=== PATIENT | female | born 1945 | race Caucasian/White ===

== ENCOUNTER → 2016-07-02 | Outpatient (CLI) | payer MEDICARE, OTHER ==
[~2016-07-02] MED LIST: REGADENOSON 0.4 MG/5 ML SYRINGE ONE
== END | disposition home or self-care (01) ==
LOC: CFH 12:07
PROVIDERS: ATTEND Internal Medicine Cardiovascular Disease
DX: Z01.810 Encounter for preprocedural cardiovascular examination (principal); I10 Essential (primary) hypertension; R94.31 Abnormal electrocardiogram [ECG] [EKG]
CPT/HCPCS: 78452; 93017; A9502; J2785

== ENCOUNTER → 2016-09-08 | Outpatient (CLI) | payer MEDICARE, OTHER ==
[2016-09-08 15:57] LABS: BLOOD UREA NITROGEN 17 mg/dL (7-18)
== END | disposition home or self-care (01) ==
LOC: LAB 15:28
PROVIDERS: ATTEND Orthopaedic Surgery
DX: Z01.812 Encounter for preprocedural laboratory examination (principal)
CPT/HCPCS: 36415; 80048; 85025

== ENCOUNTER 2017-03-14 12:18 | Emergency (ER) | payer MEDICARE, OTHER ==
[~2017-03-14] VITALS: Ht 160 cm; Wt 91.0 kg
[~2017-03-14 12:18] MED LIST changes: +AMLO10TA4 PO; -REGADENOSON 0.4 MG/5 ML SYRINGE ONE
[2017-03-14 12:20] VITALS: BP 152/92
[2017-03-14] MEDS ORDERED: ALBUTEROL/IPRATROPIUM 2.5MG/0.5MG, 3 ML NPPB ONE (13:30)
[2017-03-14] MEDS ORDERED: ALBUTEROL/IPRATROPIUM 2.5MG/0.5MG, 3 ML ONE (13:36)
== END 2017-03-14 14:58 ==
LOC: ED 13:28
DX: J45.909 Unspecified asthma, uncomplicated (principal); B34.9 Viral infection, unspecified; K21.9 Gastro-esophageal reflux disease without esophagitis; I10 Essential (primary) hypertension
CPT/HCPCS: 71020; 93005; 94640; 99284; J7512

== ENCOUNTER → 2017-11-07 | Outpatient (CLI) | payer MEDICARE, OTHER | END | disposition home or self-care (01) | LOC: CFH 13:54 | PROVIDERS: ATTEND Family Medicine | DX: D44.12 Neoplasm of uncertain behavior of left adrenal gland (principal); K76.89 Other specified diseases of liver; I10 Essential (primary) hypertension; K21.9 Gastro-esophageal reflux disease without esophagitis; J45.909 Unspecified asthma, uncomplicated | CPT/HCPCS: 74181 ==

== ENCOUNTER → 2017-11-14 | Outpatient (CLI) | payer MEDICARE, OTHER ==
[~2017-11-14] MED LIST changes: +OMNIPAQUE 350 MG/ML, 100ML BOTTLE ONE
[2017-11-14 12:57] LABS: CREATININE 1.02 mg/dL (0.55-1.02)
== END | disposition home or self-care (01) ==
LOC: RAD 12:18
PROVIDERS: ATTEND Family Medicine
DX: D41.01 Neoplasm of uncertain behavior of right kidney (principal); N28.89 Other specified disorders of kidney and ureter; K76.89 Other specified diseases of liver; E27.8 Other specified disorders of adrenal gland; I10 Essential (primary) hypertension; K21.9 Gastro-esophageal reflux disease without esophagitis
CPT/HCPCS: 36415; 74170; 82565; Q9967

== ENCOUNTER → 2017-12-23 | Outpatient (CLI) | payer MEDICARE, OTHER ==
[~2017-12-23] MED LIST changes: -OMNIPAQUE 350 MG/ML, 100ML BOTTLE ONE
[2017-12-23 08:41] LABS: BASOPHILS # (AUTO) 0.02 x10^3/uL (0-0.1); BASOPHILS % (AUTO) 0 % (0-1); EOSINOPHILS # (AUTO) 0.46 x10^3/uL (0-0.4); EOSINOPHILS % (AUTO) 5 % (1-7); LYMPHOCYTES # (AUTO) 2.24 x10^3/uL (1-3.4); LYMPHOCYTES % (AUTO) 26 % (22-44); MD NO; MEAN CORPUSCULAR HEMOGLOBIN 27.5 pg (27.0-34.8); MEAN CORPUSCULAR HGB CONC 33.5 g/dL (32.4-35.8); MEAN PLATELET VOLUME 8.8 fL (7.4-10.4); MONOCYTES # (AUTO) 0.46 x10^3/uL (0.2-0.8); MONOCYTES % (AUTO) 5 % (2-9); NEUTROPHILS # (AUTO) 5.46 x10^3/uL (1.8-6.8); NEUTROPHILS % (AUTO) 63 % (42-75); PLATELET COUNT 300 x10^3/uL (130-400); RED BLOOD COUNT 5.02 x10^6/uL (3.82-5.3); RED CELL DISTRIBUTION WIDTH 16.1 % (9.6-15.2)
[2017-12-23 08:54] LABS: ALANINE AMINOTRANSFERASE 23 U/L (12-78); ALBUMIN 3.3 g/dL (3.4-5.0); ANION GAP 8 mmol/L (5-15); CALCIUM 8.7 mg/dL (8.5-10.1); CHLORIDE 107 mmol/L (98-107); CREATININE 0.84 mg/dL (0.55-1.02)
[2017-12-23 09:04] LABS: ALKALINE PHOSPHATASE 92 U/L (45-117); BILIRUBIN,TOTAL 0.5 mg/dL (0.2-1.0); THYROID STIMULATING HORMONE 0.488 mIU/L (0.358-3.740); TOTAL PROTEIN 7.3 g/dL (6.4-8.2)
[2017-12-23 10:02] LABS: HEMOGLOBIN A1C 5.5 % (4.2-6.3)
== END | disposition home or self-care (01) ==
LOC: LAB 07:45
PROVIDERS: ATTEND Emergency Medicine Emergency Medical Services
DX: E03.9 Hypothyroidism, unspecified (principal); E55.9 Vitamin D deficiency, unspecified; R73.01 Impaired fasting glucose; Z88.2 Allergy status to sulfonamides
CPT/HCPCS: 36415; 80053; 80327; 82306; 82465; 82977; 83036; 83615; 84100; 84439; 84443; 84478; 84481; 84550; 85025; G0480

== ENCOUNTER 2018-01-21 12:35 | Emergency (ER) | payer MEDICARE, OTHER ==
[~2018-01-21] VITALS: Ht 161.3 cm; Wt 94.0 kg
[2018-01-21] MEDS ORDERED: [UNRECOGNIZED DRUG - CODE] PO (13:09)
[2018-01-21] MEDS ORDERED: blood pressure med (13:09)
[2018-01-21] MEDS ORDERED: DIAZEPAM 5 MG TABLET ONE (13:25)
[2018-01-21] MEDS ORDERED: DIAZEPAM 5 MG TABLET PO ONE (13:30)
[2018-01-21 13:55] LABS: BASOPHILS # (AUTO) 0.04 x10^3/uL (0-0.1); BASOPHILS % (AUTO) 0 % (0-1); EOSINOPHILS # (AUTO) 1.34 x10^3/uL (0-0.4); EOSINOPHILS % (AUTO) 14 % (1-7); LYMPHOCYTES # (AUTO) 2.85 x10^3/uL (1-3.4); LYMPHOCYTES % (AUTO) 30 % (22-44); MD NO; MEAN CORPUSCULAR HEMOGLOBIN 27.9 pg (27.0-34.8); MEAN CORPUSCULAR HGB CONC 33.7 g/dL (32.4-35.8); MEAN CORPUSCULAR VOLUME 82.6 fL (80-100); MEAN PLATELET VOLUME 8.1 fL (7.4-10.4); MONOCYTES # (AUTO) 0.46 x10^3/uL (0.2-0.8); MONOCYTES % (AUTO) 5 % (2-9); NEUTROPHILS # (AUTO) 4.78 x10^3/uL (1.8-6.8); NEUTROPHILS % (AUTO) 51 % (42-75); PLATELET COUNT 364 x10^3/uL (130-400); RED BLOOD COUNT 4.92 x10^6/uL (3.82-5.3); RED CELL DISTRIBUTION WIDTH 15.7 % (9.6-15.2)
[2018-01-21 14:09] LABS: ALANINE AMINOTRANSFERASE 25 U/L (12-78); ALBUMIN 3.5 g/dL (3.4-5.0); ANION GAP 7 mmol/L (5-15); CALCIUM 8.6 mg/dL (8.5-10.1); CHLORIDE 106 mmol/L (98-107); CREATININE 1.26 mg/dL (0.55-1.02)
[2018-01-21 14:13] LABS: ALKALINE PHOSPHATASE 87 U/L (45-117); BILIRUBIN,TOTAL 0.6 mg/dL (0.2-1.0); TOTAL PROTEIN 7.3 g/dL (6.4-8.2); TROPONIN I < 0.015 ng/mL (0.000-0.045)
[2018-01-21] MEDS ORDERED: SODIUM CHLORIDE 0.9%, 500ML IVBOLUS ONE (14:30)
[2018-01-21 15:11] VITALS: BP 144/84
== END 2018-01-21 16:19 | disposition home or self-care (01) ==
LOC: ED 15:38
DX: S16.1XXA Strain of muscle, fascia and tendon at neck level, initial encounter (principal); R42 Dizziness and giddiness; I10 Essential (primary) hypertension; K21.9 Gastro-esophageal reflux disease without esophagitis; E03.9 Hypothyroidism, unspecified; X58.XXXA Exposure to other specified factors, initial encounter; Y93.89 Activity, other specified; Y99.8 Other external cause status; Y92.89 Other specified places as the place of occurrence of the external cause
CPT/HCPCS: 36415; 71046; 78582; 80053; 84484; 85025; 93005; 96360; 99285; A9540; A9558; C9898; J7040

== ENCOUNTER 2018-05-01 14:22 | Emergency (ER) | payer MEDICARE, OTHER ==
[~2018-05-01] VITALS: Ht 162.6 cm; Wt 94.5 kg
[~2018-05-01 14:22] MED LIST changes: +[UNRECOGNIZED DRUG - CODE] PO; +blood pressure med
[2018-05-01 15:20] LABS: BASOPHILS # (AUTO) 0.04 x10^3/uL (0-0.1); BASOPHILS % (AUTO) 1 % (0-1); EOSINOPHILS % (AUTO) 4 % (1-7); LYMPHOCYTES # (AUTO) 2.47 x10^3/uL (1-3.4); LYMPHOCYTES % (AUTO) 34 % (22-44); MD NO; MEAN CORPUSCULAR HEMOGLOBIN 28.9 pg (27.0-34.8); MEAN CORPUSCULAR HGB CONC 33.6 g/dL (32.4-35.8); MEAN CORPUSCULAR VOLUME 85.9 fL (80-100); MEAN PLATELET VOLUME 8.7 fL (7.4-10.4); MONOCYTES # (AUTO) 0.44 x10^3/uL (0.2-0.8); MONOCYTES % (AUTO) 6 % (2-9); NEUTROPHILS # (AUTO) 4.12 x10^3/uL (1.8-6.8); NEUTROPHILS % (AUTO) 56 % (42-75); PLATELET COUNT 273 x10^3/uL (130-400); RED BLOOD COUNT 5.03 x10^6/uL (3.82-5.3); RED CELL DISTRIBUTION WIDTH 15.4 % (9.6-15.2)
[2018-05-01 15:32] LABS: ALBUMIN 3.9 g/dL (3.4-5.0); ANION GAP 7 mmol/L (5-15); CALCIUM 9.2 mg/dL (8.5-10.1); CHLORIDE 108 mmol/L (98-107)
[2018-05-01 15:40] LABS: ALANINE AMINOTRANSFERASE 22 U/L (12-78); ALKALINE PHOSPHATASE 95 U/L (45-117); BILIRUBIN,TOTAL 0.6 mg/dL (0.2-1.0); CREATININE 1.45 mg/dL (0.55-1.02); TOTAL PROTEIN 7.8 g/dL (6.4-8.2); TROPONIN I < 0.015 ng/mL (0.000-0.045)
--- NOTE | 2018-05-01 16:07 | NUR ---
PT TO ROOM FROM LOBBY
--- NOTE | 2018-05-01 16:18 | NUR ---
73 Y/O FEMALE PRESENTS TO ED WITH C/O LEFT ARM PAIN. "ABOUT 10 THIS MORNING I HAD SOME NAUSEA AND VOMITING WITH SOME PAIN THAT IS STILL IN MY LEFT ARM. THE N/V WENT AWAY, BUT I STILL HAVE THE PAIN IN MY ARM. I THOUGHT IT WAS GAS, SO I TOOK A GAS PILL. THE PAIN STARTS IN MY NECK ON THE LEFT SIDE. IF I PUSH ON IT, IT ALEVIATES SOME OF THE PAIN." PT PLACED ON CONT PULSE OX, NIBP, FOOD AND BEVERAGE COORDINATOR. NO C/O D, TRAUMA, SYNCOPE.FRIEND BEDSIDE. CALL LIGHT WITHIN REACH;
[2018-05-01] MEDS ORDERED: DEXAMETHASONE 4 MG/ML, 1ML PO ONE (17:00)
[2018-05-01] MEDS ORDERED: DEXAMETHASONE 4 MG/ML, 1ML ONE (17:08)
[2018-05-01 17:26] VITALS: BP 156/76
--- NOTE | 2018-05-01 18:16 | NUR ---
Patient/Caregiver given discharge instructions and they have confirmed that they understand the instructions. Patient ambulatory with steady gait. PT LEFT WITH ALL PERSONAL BELONGINGS.
--- NOTE | 2018-05-01 18:16 | NUR ---
LATE ENTRY FOR 1715 PT RESTING ON GURNEY. NO ACUTE DISTRESS NOTED. FRIEND BEDSIDE. NO NEEDS REQUESTED AT THIS TIME.
== END 2018-05-01 18:19 | disposition home or self-care (01) ==
LOC: ED 17:00
DX: M54.12 Radiculopathy, cervical region (principal); K21.9 Gastro-esophageal reflux disease without esophagitis; J45.909 Unspecified asthma, uncomplicated; I10 Essential (primary) hypertension
CPT/HCPCS: 36415; 71045; 80053; 84484; 85025; 93005; 99284; J1100

== ENCOUNTER → 2018-08-22 | Outpatient (CLI) | payer MEDICARE, OTHER | END | disposition home or self-care (01) | LOC: CFH 15:58 | PROVIDERS: ATTEND Urology | DX: N18.9 Chronic kidney disease, unspecified (principal); Z85.528 Personal history of other malignant neoplasm of kidney; Z96.611 Presence of right artificial shoulder joint | CPT/HCPCS: 71046 ==

== ENCOUNTER → 2018-08-29 | Outpatient (CLI) | payer MEDICARE, OTHER ==
[2018-08-29 08:15] LABS: MICROSCOPIC AUTO
[2018-08-29 08:22] LABS: ALANINE AMINOTRANSFERASE 24 U/L (12-78); ALBUMIN 3.5 g/dL (3.4-5.0); ANION GAP 4 mmol/L (5-15); CALCIUM 8.7 mg/dL (8.5-10.1); CHLORIDE 108 mmol/L (98-107); CREATININE 1.31 mg/dL (0.55-1.02)
[2018-08-29 08:24] LABS: ALKALINE PHOSPHATASE 80 U/L (45-117); BILIRUBIN,TOTAL 0.4 mg/dL (0.2-1.0); TOTAL PROTEIN 6.9 g/dL (6.4-8.2)
[2018-08-29 09:25] LABS: BASOPHILS # (AUTO) 0.03 x10^3/uL (0-0.1); BASOPHILS % (AUTO) 0 % (0-1); EOSINOPHILS # (AUTO) 0.56 x10^3/uL (0-0.4); EOSINOPHILS % (AUTO) 7 % (1-7); LYMPHOCYTES # (AUTO) 2.68 x10^3/uL (1-3.4); LYMPHOCYTES % (AUTO) 32 % (22-44); MD NO; MEAN CORPUSCULAR HEMOGLOBIN 28.7 pg (27.0-34.8); MEAN CORPUSCULAR HGB CONC 33.9 g/dL (32.4-35.8); MEAN CORPUSCULAR VOLUME 84.5 fL (80-100); MEAN PLATELET VOLUME 8.7 fL (7.4-10.4); MONOCYTES # (AUTO) 0.53 x10^3/uL (0.2-0.8); MONOCYTES % (AUTO) 6 % (2-9); NEUTROPHILS # (AUTO) 4.57 x10^3/uL (1.8-6.8); NEUTROPHILS % (AUTO) 55 % (42-75); PLATELET COUNT 304 x10^3/uL (130-400); RED BLOOD COUNT 4.95 x10^6/uL (3.82-5.3); RED CELL DISTRIBUTION WIDTH 16.1 % (9.6-15.2)
== END | disposition home or self-care (01) ==
LOC: LAB 07:53
PROVIDERS: ATTEND Internal Medicine Nephrology
DX: R94.4 Abnormal results of kidney function studies (principal)
CPT/HCPCS: 36415; 80053; 81001; 82570; 84100; 84156; 85025

== ENCOUNTER 2018-10-23 07:47 | Outpatient (CLI) | payer MEDICARE, OTHER ==
[2018-10-23 08:19] LABS: BASOPHILS # (AUTO) 0.06 x10^3/uL (0-0.1); BASOPHILS % (AUTO) 1 % (0-1); EOSINOPHILS # (AUTO) 0.52 x10^3/uL (0-0.4); EOSINOPHILS % (AUTO) 7 % (1-7); LYMPHOCYTES % (AUTO) 32 % (22-44); MD NO; MEAN CORPUSCULAR HEMOGLOBIN 28.4 pg (27.0-34.8); MEAN CORPUSCULAR HGB CONC 33.1 g/dL (32.4-35.8); MONOCYTES # (AUTO) 0.52 x10^3/uL (0.2-0.8); MONOCYTES % (AUTO) 7 % (2-9); NEUTROPHILS % (AUTO) 53 % (42-75); PLATELET COUNT 273 x10^3/uL (130-400); RED BLOOD COUNT 5.18 x10^6/uL (3.82-5.3); RED CELL DISTRIBUTION WIDTH 15.2 % (9.6-15.2)
[2018-10-23 08:23] LABS: MICROSCOPIC AUTO
[2018-10-23 08:30] LABS: ALANINE AMINOTRANSFERASE 42 U/L (12-78); ALBUMIN 3.7 g/dL (3.4-5.0); ANION GAP 6 mmol/L (5-15); CALCIUM 9.1 mg/dL (8.5-10.1); CHLORIDE 106 mmol/L (98-107); GAMMA GLUTAMYL TRANSPEPTIDASE 5 U/L (5-55)
[2018-10-23 08:32] LABS: CREATININE,URINE RANDOM 91.6 mg/dL
[2018-10-23 08:33] LABS: ALKALINE PHOSPHATASE 87 U/L (45-117); BILIRUBIN,TOTAL 0.5 mg/dL (0.2-1.0); CHOLESTEROL, TOTAL 197 mg/dL (140-239); TOTAL PROTEIN 7.4 g/dL (6.4-8.2); TRIGLYCERIDES 113 mg/dL (50-200)
== END 2018-10-23 23:59 | disposition home or self-care (01) ==
LOC: LAB 07:47
PROVIDERS: ATTEND Registered Nurse
DX: I10 Essential (primary) hypertension (principal); R73.01 Impaired fasting glucose; R94.4 Abnormal results of kidney function studies; K21.9 Gastro-esophageal reflux disease without esophagitis; J45.909 Unspecified asthma, uncomplicated; Z79.899 Other long term (current) drug therapy
CPT/HCPCS: 36415; 80053; 81001; 82465; 82570; 82977; 83615; 84100; 84156; 84478; 84550; 85025

== ENCOUNTER 2018-12-25 08:48 | Outpatient (CLI) | payer MEDICARE, OTHER | END 2018-12-25 23:59 | disposition home or self-care (01) | LOC: CFH 08:48 | PROVIDERS: ATTEND Family Medicine | DX: N63.10 Unspecified lump in the right breast, unspecified quadrant (principal) | CPT/HCPCS: 76642; 77065; G0279 ==

== ENCOUNTER → 2019-02-20 | Outpatient (CLI) | payer MEDICARE, OTHER | END | disposition home or self-care (01) | LOC: CFH 09:56 | PROVIDERS: ATTEND Physician Assistant | DX: C64.9 Malignant neoplasm of unspecified kidney, except renal pelvis (principal) | CPT/HCPCS: 71046 ==

== ENCOUNTER → 2019-03-27 | Outpatient (CLI) | payer MEDICARE, OTHER ==
[2019-03-27 09:09] LABS: BASOPHILS # (AUTO) 0.05 x10^3/uL (0-0.1); BASOPHILS % (AUTO) 1 % (0-1); EOSINOPHILS # (AUTO) 0.25 x10^3/uL (0-0.4); EOSINOPHILS % (AUTO) 3 % (1-7); LYMPHOCYTES # (AUTO) 2.13 x10^3/uL (1-3.4); LYMPHOCYTES % (AUTO) 28 % (22-44); MD NO; MEAN CORPUSCULAR HEMOGLOBIN 28.8 pg (27.0-34.8); MEAN CORPUSCULAR HGB CONC 33.3 g/dL (32.4-35.8); MEAN CORPUSCULAR VOLUME 86.5 fL (80-100); MEAN PLATELET VOLUME 7.8 fL (7.4-10.4); MONOCYTES # (AUTO) 0.54 x10^3/uL (0.2-0.8); MONOCYTES % (AUTO) 7 % (2-9); NEUTROPHILS % (AUTO) 61 % (42-75); PLATELET COUNT 312 x10^3/uL (130-400); RED CELL DISTRIBUTION WIDTH 14.9 % (9.6-15.2)
[2019-03-27 09:10] LABS: MICROSCOPIC AUTO
[2019-03-27 09:13] LABS: CALCIUM 9.6 mg/dL (8.5-10.1)
[2019-03-27 09:19] LABS: ALBUMIN 3.4 g/dL (3.4-5.0); ANION GAP 7 mmol/L (5-15); CALCIUM 9.3 mg/dL (8.5-10.1); CHLORIDE 106 mmol/L (98-107); CREATININE 1.37 mg/dL (0.55-1.02)
[2019-03-27 09:21] LABS: CREATININE,URINE RANDOM 56.9 mg/dL
== END | disposition home or self-care (01) ==
LOC: LAB 08:40
PROVIDERS: ATTEND Internal Medicine Nephrology
DX: E66.8 Other obesity (principal); C64.9 Malignant neoplasm of unspecified kidney, except renal pelvis; I12.9 Hypertensive chronic kidney disease with stage 1 through stage 4 chronic kidney disease, or unspecified chronic kidney disease; N18.3 Chronic kidney disease, stage 3 (moderate); R94.4 Abnormal results of kidney function studies; Z90.5 Acquired absence of kidney
CPT/HCPCS: 36415; 80069; 81001; 82306; 82310; 82570; 83036; 83970; 84156; 84550; 85025

== ENCOUNTER → 2019-06-05 | Outpatient (CLI) | payer MEDICARE, OTHER ==
[~2019-06-05] MED LIST changes: +METF500T17 PO; +THYR15TA PO
[2019-06-05 08:29] LABS: BASOPHILS # (AUTO) 0.02 x10^3/uL (0-0.1); BASOPHILS % (AUTO) 0 % (0-1); EOSINOPHILS # (AUTO) 0.42 x10^3/uL (0-0.4); EOSINOPHILS % (AUTO) 6 % (1-7); LYMPHOCYTES # (AUTO) 1.98 x10^3/uL (1-3.4); LYMPHOCYTES % (AUTO) 30 % (22-44); MD NO; MEAN CORPUSCULAR HEMOGLOBIN 28.4 pg (27.0-34.8); MEAN CORPUSCULAR HGB CONC 33.2 g/dL (32.4-35.8); MEAN CORPUSCULAR VOLUME 85.7 fL (80-100); MEAN PLATELET VOLUME 7.6 fL (7.4-10.4); MONOCYTES # (AUTO) 0.43 x10^3/uL (0.2-0.8); MONOCYTES % (AUTO) 6 % (2-9); NEUTROPHILS # (AUTO) 3.84 x10^3/uL (1.8-6.8); NEUTROPHILS % (AUTO) 57 % (42-75); PLATELET COUNT 273 x10^3/uL (130-400); RED BLOOD COUNT 4.98 x10^6/uL (3.82-5.3); RED CELL DISTRIBUTION WIDTH 14.8 % (9.6-15.2)
[2019-06-05 08:31] LABS: ALBUMIN 3.2 g/dL (3.4-5.0); ANION GAP 8 mmol/L (5-15); CALCIUM 8.4 mg/dL (8.5-10.1); CHLORIDE 105 mmol/L (98-107); GAMMA GLUTAMYL TRANSPEPTIDASE 9 U/L (5-55); TRIGLYCERIDES 119 mg/dL (50-200); VLDL CHOLESTEROL 24 mg/dL (0-25)
[2019-06-05 08:34] LABS: MICROSCOPIC AUTO
[2019-06-05 08:45] LABS: ALANINE AMINOTRANSFERASE 25 U/L (12-78); ALKALINE PHOSPHATASE 75 U/L (45-117); BILIRUBIN,TOTAL 0.4 mg/dL (0.2-1.0); CHOL/HDL RATIO 2.8; CHOLESTEROL, TOTAL 190 mg/dL (140-239); CREATININE 1.26 mg/dL (0.55-1.02); FREE T4 (FREE THYROXINE) 0.91 ng/dL (0.76-1.46); HDL CHOL % 36 % (28-40); HDL CHOLESTEROL (DIRECT) 68 mg/dL (40-60); LDL CHOLESTEROL,CALCULATED 98 mg/dL (54-169); LDL/HDL RATIO 1.4 (0.5-3.0); TOTAL PROTEIN 7.2 g/dL (6.4-8.2)
== END | disposition home or self-care (01) ==
LOC: LAB 08:04
PROVIDERS: ATTEND Emergency Medicine Emergency Medical Services
DX: E03.9 Hypothyroidism, unspecified (principal); E55.9 Vitamin D deficiency, unspecified; E23.7 Disorder of pituitary gland, unspecified; E78.5 Hyperlipidemia, unspecified; E34.9 Endocrine disorder, unspecified; R73.01 Impaired fasting glucose
CPT/HCPCS: 36415; 80053; 80061; 81001; 82306; 82670; 82977; 83615; 84100; 84144; 84305; 84403; 84439; 84443; 84481; 84550; 85025

== ENCOUNTER 2019-06-06 17:12 | Emergency (ER) | payer MEDICARE, OTHER ==
[~2019-06-06] VITALS: Ht 160 cm; Wt 101.8 kg
[~2019-06-06 17:12] MED LIST changes: -METF500T17 PO; -THYR15TA PO
--- NOTE | 2019-06-06 17:41 | NUR ---
TO ROOM FROM LOBBY. NAD.
--- NOTE | 2019-06-06 17:49 | NUR ---
PALPITATIONS AND DIZZINESS FOR A MONTH. LEFT NECK PAIN ESPECIALLY WITH MOVEMENT FOR A WEEK.
[2019-06-06] MEDS ORDERED: THYR15TA PO (18:00)
[2019-06-06] MEDS ORDERED: METF500T17 PO (18:00)
--- NOTE | 2019-06-06 18:31 | NUR ---
MD AND MED STUDENT EXAMINING PT
[2019-06-06 19:07] LABS: BASOPHILS # (AUTO) 0.04 x10^3/uL (0-0.1); BASOPHILS % (AUTO) 1 % (0-1); EOSINOPHILS # (AUTO) 0.45 x10^3/uL (0-0.4); EOSINOPHILS % (AUTO) 5 % (1-7); LYMPHOCYTES # (AUTO) 2.81 x10^3/uL (1-3.4); LYMPHOCYTES % (AUTO) 32 % (22-44); MD NO; MEAN CORPUSCULAR HEMOGLOBIN 28.2 pg (27.0-34.8); MEAN CORPUSCULAR HGB CONC 33.2 g/dL (32.4-35.8); MEAN CORPUSCULAR VOLUME 85.2 fL (80-100); MEAN PLATELET VOLUME 8.1 fL (7.4-10.4); MONOCYTES # (AUTO) 0.54 x10^3/uL (0.2-0.8); MONOCYTES % (AUTO) 6 % (2-9); NEUTROPHILS # (AUTO) 4.99 x10^3/uL (1.8-6.8); NEUTROPHILS % (AUTO) 57 % (42-75); PLATELET COUNT 287 x10^3/uL (130-400); RED BLOOD COUNT 4.97 x10^6/uL (3.82-5.3); RED CELL DISTRIBUTION WIDTH 15.2 % (9.6-15.2)
--- NOTE | 2019-06-06 19:07 | NUR ---
REPORT FROM VIVIANE RN PATIENT RESTING COMFORTABLY (DENIES CP/SOB) VSS ON CHARGE LPN
--- NOTE | 2019-06-06 19:12 | NUR ---
LAB AT BEDSIDE REPEAT ECG OBTAINED BY EMT
[2019-06-06 19:13] VITALS: BP 162/74
[2019-06-06 19:19] LABS: ALANINE AMINOTRANSFERASE 28 U/L (12-78); ALBUMIN 3.5 g/dL (3.4-5.0); ANION GAP 5 mmol/L (5-15); CALCIUM 9.1 mg/dL (8.5-10.1); CHLORIDE 106 mmol/L (98-107); CREATININE 1.32 mg/dL (0.55-1.02)
[2019-06-06 19:23] LABS: ALKALINE PHOSPHATASE 77 U/L (45-117); BILIRUBIN,TOTAL 0.3 mg/dL (0.2-1.0); TOTAL PROTEIN 7.5 g/dL (6.4-8.2); TROPONIN I < 0.015 ng/mL (0.000-0.045)
== END 2019-06-06 20:57 | disposition home or self-care (01) ==
LOC: ED 20:15
DX: R07.2 Precordial pain (principal); R06.02 Shortness of breath; M54.2 Cervicalgia; I10 Essential (primary) hypertension; K21.9 Gastro-esophageal reflux disease without esophagitis; J45.909 Unspecified asthma, uncomplicated; Z90.5 Acquired absence of kidney
CPT/HCPCS: 36415; 71045; 80053; 83880; 84484; 85025; 93005; 99285

== ENCOUNTER 2019-07-07 18:45 | Emergency (ER) | payer MEDICARE, OTHER ==
[~2019-07-07] VITALS: Ht 160 cm; Wt 103.2 kg
[~2019-07-07 18:45] MED LIST changes: +METF500T17 PO; +THYR15TA PO
--- NOTE | 2019-07-07 19:15 | NUR ---
Pt describes her SOB as an inability to take a full breath when resting. Pt then reports worsening SOB with activity. Pt states she used her inhaler shortly before coming to be seen.
[2019-07-07] MEDS ORDERED: SODIUM CHLORIDE FLUSH 10ML SYR IVF ONE (19:30)
[2019-07-07] MEDS ORDERED: MAALOX/HYOSCYAMINE/LIDOCAINE 45 ML BTL PO ONE (19:30)
[2019-07-07 19:49] LABS: BASOPHILS # (AUTO) 0.09 x10^3/uL (0-0.1); BASOPHILS % (AUTO) 1 % (0-1); EOSINOPHILS # (AUTO) 0.43 x10^3/uL (0-0.4); EOSINOPHILS % (AUTO) 5 % (1-7); LYMPHOCYTES # (AUTO) 2.87 x10^3/uL (1-3.4); LYMPHOCYTES % (AUTO) 31 % (22-44); MD NO; MEAN CORPUSCULAR HEMOGLOBIN 28.5 pg (27.0-34.8); MEAN CORPUSCULAR HGB CONC 33.2 g/dL (32.4-35.8); MEAN CORPUSCULAR VOLUME 85.9 fL (80-100); MONOCYTES % (AUTO) 5 % (2-9); NEUTROPHILS # (AUTO) 5.49 x10^3/uL (1.8-6.8); NEUTROPHILS % (AUTO) 59 % (42-75); PLATELET COUNT 324 x10^3/uL (130-400); RED BLOOD COUNT 5.04 x10^6/uL (3.82-5.3); RED CELL DISTRIBUTION WIDTH 15.4 % (9.6-15.2)
[2019-07-07] MEDS ORDERED: MAALOX/HYOSCYAMINE/LIDOCAINE 45 ML BTL ONE (19:49)
[2019-07-07 19:59] LABS: ALANINE AMINOTRANSFERASE 35 U/L (12-78); ALBUMIN 3.6 g/dL (3.4-5.0); ANION GAP 8 mmol/L (5-15); CALCIUM 9.2 mg/dL (8.5-10.1); CHLORIDE 106 mmol/L (98-107); CREATININE 1.36 mg/dL (0.55-1.02)
[2019-07-07 20:04] LABS: ALKALINE PHOSPHATASE 82 U/L (45-117); BILIRUBIN,TOTAL 0.3 mg/dL (0.2-1.0); TOTAL PROTEIN 7.8 g/dL (6.4-8.2); TROPONIN I < 0.015 ng/mL (0.000-0.045)
--- NOTE | 2019-07-07 20:19 | NUR ---
Pt reports her epigastric pain has improved after the GI cocktail. 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
[2019-07-07 20:50] VITALS: BP 169/76
== END 2019-07-07 21:00 | disposition home or self-care (01) ==
LOC: ED 19:13
DX: J45.909 Unspecified asthma, uncomplicated (principal); K29.00 Acute gastritis without bleeding; I10 Essential (primary) hypertension; K21.9 Gastro-esophageal reflux disease without esophagitis
CPT/HCPCS: 36415; 71045; 80053; 83690; 84484; 85025; 93005; 99285

== ENCOUNTER 2019-07-25 07:46 | Emergency (ER) | payer MEDICARE, OTHER ==
[~2019-07-25] VITALS: Ht 162.6 cm; Wt 99.7 kg
[2019-07-25] MEDS ORDERED: SODIUM CHLORIDE FLUSH 10ML SYR IVF ONE (08:00)
[2019-07-25] MEDS ORDERED: FAMOTIDINE 20 MG/2 ML IV ONE (08:00)
[2019-07-25] MEDS ORDERED: ONDANSETRON 2MG/ML, 2ML IVPush ONE (08:00)
--- NOTE | 2019-07-25 08:06 | NUR ---
Pt ambulated into room with a smooth and steady gait, changed into gown, given warm blankets for comfort, denies additional needs at this time, call light within reach, NAD, even and unlabored respirations, WCTM.
[2019-07-25] MEDS ORDERED: FAMOTIDINE 20 MG/2 ML ONE (08:21)
[2019-07-25] MEDS ORDERED: ONDANSETRON 2MG/ML, 2ML ONE (08:21)
[2019-07-25] MEDS ORDERED: HYDROmorphone 1 MG/ML, 1ML INJ ONE (08:21)
[2019-07-25] MEDS ORDERED: HYDROmorphone 2 MG/ML, 1ML ONE ×2 (08:27→10:37)
[2019-07-25] MEDS: HYDROmorphone 2 MG/ML, 1ML IVPush PRN ×2 (08:31→10:43)
--- NOTE | 2019-07-25 08:55 | NUR ---
urine and labs walked to lab. US at bedside. NAD, denies additional needs, call light within reach, WCTM
[2019-07-25 09:08] LABS: BASOPHILS # (AUTO) 0.03 x10^3/uL (0-0.1); BASOPHILS % (AUTO) 0 % (0-1); EOSINOPHILS # (AUTO) 0.07 x10^3/uL (0-0.4); EOSINOPHILS % (AUTO) 1 % (1-7); LYMPHOCYTES # (AUTO) 1.73 x10^3/uL (1-3.4); LYMPHOCYTES % (AUTO) 23 % (22-44); MD NO; MEAN CORPUSCULAR HEMOGLOBIN 28.3 pg (27.0-34.8); MEAN CORPUSCULAR HGB CONC 33.3 g/dL (32.4-35.8); MEAN PLATELET VOLUME 8.2 fL (7.4-10.4); MONOCYTES # (AUTO) 0.38 x10^3/uL (0.2-0.8); MONOCYTES % (AUTO) 5 % (2-9); NEUTROPHILS # (AUTO) 5.44 x10^3/uL (1.8-6.8); NEUTROPHILS % (AUTO) 71 % (42-75); PLATELET COUNT 310 x10^3/uL (130-400); RED BLOOD COUNT 5.11 x10^6/uL (3.82-5.3); RED CELL DISTRIBUTION WIDTH 15.3 % (9.6-15.2)
[2019-07-25 09:12] LABS: CULTURE INDICATED? YES; MICROSCOPIC INDICATED
[2019-07-25 09:18] LABS: ALANINE AMINOTRANSFERASE 23 U/L (12-78); ALBUMIN 3.5 g/dL (3.4-5.0); ANION GAP 7 mmol/L (5-15); CALCIUM 10.2 mg/dL (8.5-10.1); CHLORIDE 104 mmol/L (98-107); CREATININE 1.29 mg/dL (0.55-1.02)
[2019-07-25 09:20] LABS: ALKALINE PHOSPHATASE 83 U/L (45-117); BILIRUBIN,TOTAL 0.7 mg/dL (0.2-1.0); TOTAL PROTEIN 7.7 g/dL (6.4-8.2)
--- NOTE | 2019-07-25 09:38 | NUR ---
PT RESTING IN GURNEY, EYES OPEN, LIGHTS DIMMED FOR COMFORT, GIVEN ORAL SWAB STICKS FOR COMFORT, DENIES ADDITIONAL NEEDS, NAD, CALL LIGHT WITHIN REACH, WCTM.
[2019-07-25] MEDS ORDERED: HYDR-2995 PO (09:41)
--- NOTE | 2019-07-25 10:45 | NUR ---
Pt resting in [facility], [employer], denies additional needs, medicated per MAR, call light within reach, WCTM.
--- NOTE | 2019-07-25 11:44 | NUR ---
Patient given discharge instructions and they have confirmed that they understand the instructions. Patient ambulatory with steady gait. All pt questions answered, denies additional needs at this time.
[2019-07-25 11:50] VITALS: BP 141/54
== END 2019-07-25 11:54 | disposition home or self-care (01) ==
LOC: ED 08:08
DX: K29.00 Acute gastritis without bleeding (principal); I10 Essential (primary) hypertension; K21.9 Gastro-esophageal reflux disease without esophagitis
CPT/HCPCS: 36415; 76700; 80053; 81001; 83690; 85025; 87077; 87086; 96374; 96375; 96376; 99284; J1170; J2405; J3490; 87186

== ENCOUNTER 2019-07-26 07:38 | Inpatient (IN) | payer MEDICARE, OTHER ==
[~2019-07-26] VITALS: Ht 162.6 cm; Wt 104.2 kg
[~2019-07-26 07:38] MED LIST changes: +HYDR-2995 PO
--- NOTE | 2019-07-26 07:58 | NUR ---
DR CHRISTENSEN AT BEDSIDE. PT SEEN IN ED 07/23 FOR RUQ ABD PAIN, US WAS DONE WITH NO STONES NOTED IN GALBLADDER. PT D/C HOME. RTN TODAY STATES SHE HAD PAIN T/O THE NIGHT. PT STATES SHE HAS NOT HAD ANYTHING TO EAT SINCE YESTERDAY MORNING. HAS TRIED TO DRINK WATER BUT PAIN INCREASES. PT RESTLESS AND HAVING DIFFICULTY FINDING A COMFORTABLE POSITION. PT ASSESSMENT REV WITH DR CHRISTENSEN AND POC DISCUSSED. CALL LIGHT W/I REACH.
[2019-07-26] MEDS ORDERED: ONDANSETRON 2MG/ML, 2ML IVPush ONE ×2 (08:00→10:00)
[2019-07-26] MEDS ORDERED: MAALOX/HYOSCYAMINE/LIDOCAINE 45 ML BTL PO ONE (08:00)
[2019-07-26] MEDS ORDERED: PANTOPRAZOLE 40 MG IV IV ONE (08:00)
[2019-07-26] MEDS ORDERED: HYDROmorphone 2 MG/ML, 1ML IVPush PRN (08:00)
[2019-07-26] MEDS ORDERED: HYDROmorphone 1 MG/ML, 1ML INJ ONE ×2 (08:10→09:37)
[2019-07-26] MEDS ORDERED: ONDANSETRON 2MG/ML, 2ML ONE ×2 (08:10→09:37)
[2019-07-26] MEDS ORDERED: PANTOPRAZOLE 40 MG IV ONE (08:10)
[2019-07-26] MEDS ORDERED: MAALOX/HYOSCYAMINE/LIDOCAINE 45 ML BTL ONE (08:11)
--- NOTE | 2019-07-26 08:19 | NUR ---
MEDICATED PER ORDERS, IV ESTABLISHED. VSS. NO FURTHER NEEDS AT THIS TIME
[2019-07-26 08:25] LABS: BASOPHILS # (AUTO) 0.05 x10^3/uL (0-0.1); BASOPHILS % (AUTO) 1 % (0-1); EOSINOPHILS # (AUTO) 0.17 x10^3/uL (0-0.4); EOSINOPHILS % (AUTO) 2 % (1-7); LYMPHOCYTES # (AUTO) 2.31 x10^3/uL (1-3.4); LYMPHOCYTES % (AUTO) 27 % (22-44); MD NO; MEAN CORPUSCULAR HEMOGLOBIN 28.5 pg (27.0-34.8); MEAN CORPUSCULAR HGB CONC 33.5 g/dL (32.4-35.8); MEAN CORPUSCULAR VOLUME 85.3 fL (80-100); MEAN PLATELET VOLUME 8.1 fL (7.4-10.4); MONOCYTES # (AUTO) 0.54 x10^3/uL (0.2-0.8); MONOCYTES % (AUTO) 6 % (2-9); NEUTROPHILS # (AUTO) 5.65 x10^3/uL (1.8-6.8); NEUTROPHILS % (AUTO) 65 % (42-75); PLATELET COUNT 297 x10^3/uL (130-400); RED BLOOD COUNT 4.94 x10^6/uL (3.82-5.3)
[2019-07-26 08:41] LABS: ALANINE AMINOTRANSFERASE 23 U/L (12-78); ALBUMIN 3.5 g/dL (3.4-5.0); ANION GAP 6 mmol/L (5-15); CALCIUM 9.2 mg/dL (8.5-10.1); CHLORIDE 101 mmol/L (98-107); CREATININE 1.49 mg/dL (0.55-1.02)
[2019-07-26 08:43] LABS: ALKALINE PHOSPHATASE 82 U/L (45-117); BILIRUBIN,TOTAL 0.6 mg/dL (0.2-1.0); TOTAL PROTEIN 7.4 g/dL (6.4-8.2)
[2019-07-26] MEDS: INSULIN LISPRO 100 UNITS/ML, PEN SQ-INSULIN SCH ×3 (11:00→20:46)
--- NOTE | 2019-07-26 12:40 | NUR ---
REPORT TO DUSTIN
[2019-07-26] MEDS ORDERED: SINCALIDE (KINEVAC) 5 MCG ONE (13:49)
[2019-07-26 14:48] VITALS: BP 157/79
[2019-07-26] MEDS: HYDROmorphone 2 MG/ML, 1ML IVPush PRN ×2 (15:03→20:29)
[2019-07-26] MEDS: ONDANSETRON 2MG/ML, 2ML IVPush PRN ×2 (15:14→20:28)
[2019-07-26] MEDS: SODIUM CHLORIDE 0.9% 1,000 ML IV SCH (15:14)
[2019-07-26] MEDS: ENOXAPARIN 40 MG/0.4 ML SQ SCH (17:12)
[2019-07-26 19:56] VITALS: BP 170/80
[2019-07-26] MEDS ORDERED: DIPHENHYDRAMINE 25 MG CAPSULE PO ONE (22:00)
[2019-07-27] VITALS (8 sets, daily range): BP systolic 110–160; BP diastolic 60–83
[2019-07-27] MEDS: SODIUM CHLORIDE 0.9% 1,000 ML IV SCH ×2 (00:24→17:51)
[2019-07-27] MEDS: HYDROmorphone 2 MG/ML, 1ML IVPush PRN ×4 (01:53→15:32)
[2019-07-27] MEDS ORDERED: DIPHENHYDRAMINE 50 MG/ML, 1ML IVPush ONE (02:30)
[2019-07-27 06:04] LABS: BASOPHILS # (AUTO) 0.02 x10^3/uL (0-0.1); BASOPHILS % (AUTO) 0 % (0-1); EOSINOPHILS # (AUTO) 0.09 x10^3/uL (0-0.4); EOSINOPHILS % (AUTO) 1 % (1-7); LYMPHOCYTES % (AUTO) 22 % (22-44); MD NO; MEAN CORPUSCULAR HEMOGLOBIN 28.6 pg (27.0-34.8); MEAN CORPUSCULAR HGB CONC 33.2 g/dL (32.4-35.8); MEAN CORPUSCULAR VOLUME 86.3 fL (80-100); MEAN PLATELET VOLUME 8.7 fL (7.4-10.4); MONOCYTES # (AUTO) 0.61 x10^3/uL (0.2-0.8); MONOCYTES % (AUTO) 7 % (2-9); NEUTROPHILS # (AUTO) 6.63 x10^3/uL (1.8-6.8); NEUTROPHILS % (AUTO) 70 % (42-75); PLATELET COUNT 252 x10^3/uL (130-400); RED BLOOD COUNT 4.56 x10^6/uL (3.82-5.3); RED CELL DISTRIBUTION WIDTH 14.7 % (9.6-15.2)
[2019-07-27 06:16] LABS: ANION GAP 6 mmol/L (5-15); CALCIUM 8.6 mg/dL (8.5-10.1); CHLORIDE 107 mmol/L (98-107)
[2019-07-27] MEDS: INSULIN LISPRO 100 UNITS/ML, PEN SQ-INSULIN SCH ×4 (07:00→20:15)
[2019-07-27] MEDS: DIPHENHYDRAMINE 50 MG/ML, 1ML IVPush PRN (08:08)
[2019-07-27] MEDS: AMLODIPINE 10 MG TAB PO SCH (08:08)
[2019-07-27] MEDS: ONDANSETRON 2MG/ML, 2ML IVPush PRN (08:45)
[2019-07-27] MEDS ORDERED: CHLORHEXIDINE 15 ML UDC MM ONE (12:30)
[2019-07-27] MEDS ORDERED: CHLORHEXIDINE 15 ML UDC ONE (12:31)
[2019-07-27] MEDS ORDERED: BUPIVACAINE/PF-EPI 0.5% 1:200K ONE (13:03)
[2019-07-27] MEDS ORDERED: FENTANYL PF 100 MCG/2ML ONE ×3 (13:04→15:23)
[2019-07-27] MEDS ORDERED: PROPOFOL 10 MG/ML, 20ML ONE (13:04)
[2019-07-27] MEDS ORDERED: DEXAMETHASONE 4 MG/ML, 1ML ONE (13:04)
[2019-07-27] MEDS ORDERED: SUCCINYLCHOLINE 20 MG/ML, 10ML ONE (13:04)
[2019-07-27] MEDS ORDERED: GLYCOPYRROLATE 0.2MG/1ML, 5ML ONE (13:04)
[2019-07-27] MEDS ORDERED: MIDAZOLAM 1 MG/ML, 2ML ONE (13:04)
[2019-07-27] MEDS ORDERED: ROCURONIUM 10MG/ML,5ML ONE (13:04)
[2019-07-27] MEDS ORDERED: ONDANSETRON 2MG/ML, 2ML ONE (13:04)
[2019-07-27] MEDS ORDERED: NEOSTIGMINE 1 MG/ML, 10ML ONE (13:04)
[2019-07-27] MEDS ORDERED: CEFAZOLIN 1,000 MG ONE (13:04)
[2019-07-27] MEDS ORDERED: EPHEDRINE 50 MG/ML, 1ML ONE (13:42)
[2019-07-27] MEDS ORDERED: ACETAMINOPHEN 325 MG TABLET PO PRN (14:30)
[2019-07-27] MEDS ORDERED: PROMETHAZINE 25 MG/ML, 1ML IV PRN (14:30)
[2019-07-27] MEDS ORDERED: OXYcodone 5 MG/5 ML ORAL.SOL UDC PO PRN (14:30)
[2019-07-27] MEDS ORDERED: DIPHENHYDRAMINE 50 MG/ML, 1ML IVPush PRN (14:30)
[2019-07-27] MEDS ORDERED: MEPERIDINE/PF 25MG/ML,1ML IVPush PRN (14:30)
[2019-07-27] MEDS ORDERED: FENTANYL PF 100 MCG/2ML IV PRN (14:30)
[2019-07-27] MEDS ORDERED: DIPHENHYDRAMINE 50 MG/ML, 1ML ONE (15:14)
[2019-07-27] MEDS ORDERED: HYDROmorphone 1 MG/ML, 1ML INJ ONE (15:14)
[2019-07-27] MEDS ORDERED: OXYcodone 5 MG/5 ML ORAL.SOL UDC ONE (15:46)
[2019-07-27] MEDS ORDERED: LORazepam 2 MG/ML, 1ML IVPush PRN (16:00)
[2019-07-27] MEDS: ENOXAPARIN 40 MG/0.4 ML SQ SCH (16:00)
[2019-07-28 00:56] VITALS: BP 132/72
[2019-07-28] MEDS: HYDROmorphone 2 MG/ML, 1ML IVPush PRN ×5 (01:05→20:25)
[2019-07-28 02:01] VITALS: BP 132/72
[2019-07-28] MEDS: SODIUM CHLORIDE 0.9% 1,000 ML IV SCH ×3 (03:32→23:17)
[2019-07-28 05:20] LABS: BASOPHILS # (AUTO) 0.03 x10^3/uL (0-0.1); BASOPHILS % (AUTO) 0 % (0-1); EOSINOPHILS # (AUTO) 0.03 x10^3/uL (0-0.4); EOSINOPHILS % (AUTO) 0 % (1-7); LYMPHOCYTES # (AUTO) 1.65 x10^3/uL (1-3.4); LYMPHOCYTES % (AUTO) 16 % (22-44); MD NO; MEAN CORPUSCULAR HEMOGLOBIN 28.5 pg (27.0-34.8); MEAN CORPUSCULAR HGB CONC 32.9 g/dL (32.4-35.8); MEAN CORPUSCULAR VOLUME 86.7 fL (80-100); MEAN PLATELET VOLUME 8.8 fL (7.4-10.4); MONOCYTES # (AUTO) 0.78 x10^3/uL (0.2-0.8); MONOCYTES % (AUTO) 7 % (2-9); NEUTROPHILS # (AUTO) 8.02 x10^3/uL (1.8-6.8); NEUTROPHILS % (AUTO) 76 % (42-75); PLATELET COUNT 235 x10^3/uL (130-400); RED BLOOD COUNT 4.45 x10^6/uL (3.82-5.3); RED CELL DISTRIBUTION WIDTH 15.1 % (9.6-15.2)
[2019-07-28 05:29] LABS: CHLORIDE 107 mmol/L (98-107)
[2019-07-28 05:40] LABS: ANION GAP 7 mmol/L (5-15); CALCIUM 8.4 mg/dL (8.5-10.1); CREATININE 1.11 mg/dL (0.55-1.02)
[2019-07-28 06:58] VITALS: BP 185/98
[2019-07-28] MEDS: AMLODIPINE 10 MG TAB PO SCH (07:15)
[2019-07-28] MEDS: DIPHENHYDRAMINE 50 MG/ML, 1ML IVPush PRN ×3 (07:15→20:25)
[2019-07-28] MEDS: INSULIN LISPRO 100 UNITS/ML, PEN SQ-INSULIN SCH ×4 (07:28→19:56)
[2019-07-28] MEDS ORDERED: SIMETHICONE 125 MG CHEW TAB PO ONE (08:00)
[2019-07-28 09:33] LABS: ALANINE AMINOTRANSFERASE 45 U/L (12-78); ALBUMIN 2.8 g/dL (3.4-5.0)
[2019-07-28 09:35] LABS: ALKALINE PHOSPHATASE 67 U/L (45-117); BILIRUBIN,TOTAL 0.5 mg/dL (0.2-1.0); TOTAL PROTEIN 6.6 g/dL (6.4-8.2)
[2019-07-28 09:36] LABS: BILIRUBIN, DIRECT < 0.1 mg/dL (0.1-0.2); BILIRUBIN,INDIRECT 0.4 mg/dL (0.0-2.0)
[2019-07-28 12:54] VITALS: BP 169/89
[2019-07-28] MEDS: ENOXAPARIN 40 MG/0.4 ML SQ SCH (15:54)
[2019-07-28 20:00] VITALS: BP 152/85
[2019-07-29 00:41] VITALS: BP 150/85
[2019-07-29 00:49] VITALS: BP 150/85
[2019-07-29] MEDS: HYDROmorphone 2 MG/ML, 1ML IVPush PRN ×3 (00:54→10:51)
[2019-07-29] MEDS: ONDANSETRON 2MG/ML, 2ML IVPush PRN ×3 (00:56→17:48)
[2019-07-29] MEDS: DIPHENHYDRAMINE 50 MG/ML, 1ML IVPush PRN ×2 (04:53→10:56)
[2019-07-29 06:06] LABS: ANION GAP 8 mmol/L (5-15); CHLORIDE 107 mmol/L (98-107); CREATININE 0.89 mg/dL (0.55-1.02)
[2019-07-29 06:32] LABS: BASOPHILS # (AUTO) 0.04 x10^3/uL (0-0.1); BASOPHILS % (AUTO) 0 % (0-1); EOSINOPHILS # (AUTO) 0.48 x10^3/uL (0-0.4); EOSINOPHILS % (AUTO) 5 % (1-7); LYMPHOCYTES # (AUTO) 1.73 x10^3/uL (1-3.4); LYMPHOCYTES % (AUTO) 20 % (22-44); MD NO; MEAN CORPUSCULAR HEMOGLOBIN 28.5 pg (27.0-34.8); MEAN CORPUSCULAR HGB CONC 33.3 g/dL (32.4-35.8); MEAN CORPUSCULAR VOLUME 85.6 fL (80-100); MEAN PLATELET VOLUME 8.5 fL (7.4-10.4); MONOCYTES # (AUTO) 0.58 x10^3/uL (0.2-0.8); MONOCYTES % (AUTO) 7 % (2-9); NEUTROPHILS # (AUTO) 6.04 x10^3/uL (1.8-6.8); NEUTROPHILS % (AUTO) 68 % (42-75); PLATELET COUNT 241 x10^3/uL (130-400); RED BLOOD COUNT 4.34 x10^6/uL (3.82-5.3); RED CELL DISTRIBUTION WIDTH 15.1 % (9.6-15.2)
[2019-07-29] MEDS: INSULIN LISPRO 100 UNITS/ML, PEN SQ-INSULIN SCH ×4 (07:00→21:00)
[2019-07-29 07:18] VITALS: BP 151/82
[2019-07-29] MEDS ORDERED: POTASSIUM CHLORIDE 20 MEQ TAB.ER.PRT PO ONE (07:30)
[2019-07-29] MEDS ORDERED: POTASSIUM CHLORIDE 40 MEQ in SODIUM CHLORIDE 0.9% 500 ML IV ONE (07:30)
[2019-07-29] MEDS: AMLODIPINE 10 MG TAB PO SCH (08:33)
[2019-07-29] MEDS: SENNA/DOCUSATE TABLET PO SCH ×2 (08:34→21:00)
[2019-07-29] MEDS: LISINOPRIL 10 MG TABLET PO SCH (08:34)
[2019-07-29] MEDS: POLYETHYLENE GLYCOL 17 GM PACKET NG SCH ×2 (08:34→20:41)
[2019-07-29 09:56] LABS: ALBUMIN 3.1 g/dL (3.4-5.0); ANION GAP 6 mmol/L (5-15); CALCIUM 8.2 mg/dL (8.5-10.1); CHLORIDE 105 mmol/L (98-107)
[2019-07-29 10:00] LABS: ALANINE AMINOTRANSFERASE 38 U/L (12-78); ALKALINE PHOSPHATASE 65 U/L (45-117); BILIRUBIN,TOTAL 0.6 mg/dL (0.2-1.0); CREATININE 1.08 mg/dL (0.55-1.02); TOTAL PROTEIN 6.5 g/dL (6.4-8.2)
[2019-07-29] MEDS ORDERED: LISI-167 PO (12:16)
[2019-07-29] MEDS ORDERED: HYDR2TAB29 PO (12:16)
[2019-07-29 12:25] VITALS: BP 137/83
[2019-07-29] MEDS: ENOXAPARIN 40 MG/0.4 ML SQ SCH (16:06)
[2019-07-29] MEDS: HYDROmorphone 2MG TABLET PO PRN ×2 (16:06→22:06)
[2019-07-29 19:03] VITALS: BP 166/85
[2019-07-29] MEDS: BISACODYL 10 MG SUPP PR SCH ×2 (20:00→21:08)
[2019-07-29] MEDS: SIMETHICONE 80 MG CHEW TAB PO PRN (20:41)
[2019-07-29] MEDS ORDERED: TEMAZEPAM 15 MG CAPSULE PO ONE (21:00)
[2019-07-29] MEDS ORDERED: ACETAMINOPHEN 500 MG TABLET ONE (21:03)
[2019-07-29] MEDS: ACETAMINOPHEN 500 MG TABLET PO SCH (21:08)
[2019-07-30 01:05] VITALS: BP 153/87
[2019-07-30] MEDS: HYDROmorphone 2MG TABLET PO PRN (03:58)
[2019-07-30] MEDS: ACETAMINOPHEN 500 MG TABLET PO SCH (05:35)
[2019-07-30 06:42] VITALS: BP 167/84
[2019-07-30] MEDS: INSULIN LISPRO 100 UNITS/ML, PEN SQ-INSULIN SCH ×3 (07:00→16:00)
[2019-07-30] MEDS: POLYETHYLENE GLYCOL 17 GM PACKET NG SCH (08:13)
[2019-07-30] MEDS: SENNA/DOCUSATE TABLET PO SCH (08:14)
[2019-07-30] MEDS: LISINOPRIL 10 MG TABLET PO SCH (08:14)
[2019-07-30] MEDS: AMLODIPINE 10 MG TAB PO SCH (08:14)
[2019-07-30] MEDS: ONDANSETRON 2MG/ML, 2ML IVPush PRN (08:18)
[2019-07-30] MEDS: SIMETHICONE 80 MG CHEW TAB PO PRN (08:23)
[2019-07-30] MEDS: LACTULOSE 10 GM/15 ML UDC PO PRN ×2 (09:33→13:13)
[2019-07-30 12:49] LABS: ANION GAP 5 mmol/L (5-15); CALCIUM 8.8 mg/dL (8.5-10.1); CHLORIDE 104 mmol/L (98-107); CREATININE 1.07 mg/dL (0.55-1.02)
[2019-07-30] MEDS ORDERED: ACETAMINOPHEN 500 MG TABLET PO SCH (13:30)
[2019-07-30] MEDS ORDERED: POTASSIUM CHLORIDE 20 MEQ TAB.ER.PRT PO ONE (13:30)
[2019-07-30 13:56] VITALS: BP 139/83
[2019-07-30] MEDS: ENOXAPARIN 40 MG/0.4 ML SQ SCH (16:00)
== END 2019-07-30 17:25 | disposition home or self-care (01) | DRG 417 ==
LOC: ED 07:42 → 4EST 13:51
PROVIDERS: ADMIT Internal Medicine Infectious Disease; ATTEND Internal Medicine Infectious Disease
PROC: 0FT44ZZ Resection of Gallbladder, Percutaneous Endoscopic Approach (ICD-10-PCS; principal; 2019-07-27 15:30)
DX: K80.10 Calculus of gallbladder with chronic cholecystitis without obstruction (principal); N17.0 Acute kidney failure with tubular necrosis; N18.3 Chronic kidney disease, stage 3 (moderate); H81.09 Meniere's disease, unspecified ear; I12.9 Hypertensive chronic kidney disease with stage 1 through stage 4 chronic kidney disease, or unspecified chronic kidney disease; K21.9 Gastro-esophageal reflux disease without esophagitis; J45.909 Unspecified asthma, uncomplicated; E66.01 Morbid (severe) obesity due to excess calories; R73.03 Prediabetes; E03.9 Hypothyroidism, unspecified; K82.8 Other specified diseases of gallbladder; E87.6 Hypokalemia; Z88.8 Allergy status to other drugs, medicaments and biological substances; Z90.5 Acquired absence of kidney; Z85.528 Personal history of other malignant neoplasm of kidney; Z88.2 Allergy status to sulfonamides; Z91.041 Radiographic dye allergy status; Z88.1 Allergy status to other antibiotic agents
CPT/HCPCS: 36415; 74176; 76700; 78227; 80048; 80053; 80076; 81001; 82962; 83036; 83690; 85025; 87077; 87086; 87186; 88304; 96374; 96375; 99285; G0378; J0690; J1100; J1170; J1650; J2250; J2405; J2704; J2710; J3010; J3480; A9537; C9113; J0330; J1200; J2805; J7030; J7040; Q0163

== ENCOUNTER 2020-02-02 09:27 | Outpatient (CLI) | payer MEDICARE, OTHER ==
[~2020-02-02 09:27] MED LIST changes: +HYDR2TAB29 PO; +LISI-167 PO
== END 2020-02-02 23:59 | disposition home or self-care (01) ==
LOC: LAB 09:27
PROVIDERS: ATTEND Dermatology
DX: Z02.9 Encounter for administrative examinations, unspecified (principal)

== ENCOUNTER → 2020-02-07 | Outpatient (CLI) | payer MEDICARE, OTHER | END | disposition home or self-care (01) | LOC: CFH 07:14 | PROVIDERS: ATTEND Physician Assistant | DX: C64.9 Malignant neoplasm of unspecified kidney, except renal pelvis (principal) | CPT/HCPCS: 76700 ==

== ENCOUNTER → 2020-03-05 | Outpatient (CLI) | payer MEDICARE, OTHER | END | disposition home or self-care (01) | LOC: CFH 14:25 | PROVIDERS: ATTEND Family Medicine | DX: Z12.31 Encounter for screening mammogram for malignant neoplasm of breast (principal) | CPT/HCPCS: 77063; 77067 ==

== ENCOUNTER → 2020-09-24 | Outpatient (CLI) | payer MEDICARE, OTHER | END | disposition home or self-care (01) | LOC: CFH 10:33 | PROVIDERS: ATTEND Urology | DX: C64.9 Malignant neoplasm of unspecified kidney, except renal pelvis (principal); Z90.5 Acquired absence of kidney; Z96.611 Presence of right artificial shoulder joint | CPT/HCPCS: 71046; 76770 ==